=== PATIENT | male | born 1960 | race Caucasian/White ===

== ENCOUNTER 2020-12-08 08:28 | Day surgery (SDC) | payer BC ==
[2020-11-21 12:10] LABS: BASOPHILS # (AUTO) 0.1 X10'3 (0-0.2); BASOPHILS % (AUTO) 1.4 % (0-1); EOSINOPHILS # (AUTO) 0.1 X10'3 (0-0.9); EOSINOPHILS % (AUTO) 2.2 % (0-6); MEAN CORPUSCULAR HEMOGLOBIN 32.1 PG (27.0-31.0); MEAN CORPUSCULAR HGB CONC 33.7 g/dL (33.0-36.5); MEAN CORPUSCULAR VOLUME 95.4 FL (78-98); MEAN PLATELET VOLUME 9.1 FL (7.4-10.4); MONOCYTES # (AUTO) 0.5 X10'3 (0-0.9); MONOCYTES % (AUTO) 8.1 % (2-12); NEUTROPHILS # (AUTO) 3.4 X10'3 (1.8-7.7); NEUTROPHILS % (AUTO) 56.3 % (42-75); PRE OP HEMATOCRIT 43.8 % (42.0-52.0); PRE OP HEMOGLOBIN 14.8 g/dL (14.0-17.9); PRE OP PLATELET COUNT 195 X10'3 (140-440); RED BLOOD COUNT 4.59 X10'6 (4.70-6.10); RED CELL DISTRIBUTION WIDTH 13.6 % (11.5-14.5)
[2020-11-21 12:20] LABS: ALBUMIN 3.1 G/DL (3.4-5.0); ALBUMIN/GLOBULIN RATIO 0.9 (1.1-1.5); ALKALINE PHOSPHATASE 58 IU/L (46-116); BLOOD UREA NITROGEN 14 MG/DL (7-18); CALCIUM 8.1 MG/DL (8.5-10.1); CHLORIDE 108 MMOL/L (99-107); PRE OP ALT 41 U/L (30-65); PRE OP ANION GAP 8 (8-16); PRE OP AST 33 U/L (10-37); PRE OP BILIRUB, TOTAL 0.5 MG/DL (0.0-1.0); PRE OP GLUCOSE 84 MG/DL (70-104); PRE OP SODIUM 141 MMOL/L (135-145); TOTAL CARBON DIOXIDE 25.1 MMOL/L (24-32); TOTAL PROTEIN 6.7 G/DL (6.4-8.2); eGFR > 90 ML/MIN
[~2020-12-08] VITALS: Ht 177.8 cm; Wt 80.4 kg
[2020-12-08] VITALS (9 sets, daily range): BP systolic 116–125; BP diastolic 49–93
[~2020-12-08 08:28] MED LIST: BUPIVAcaine/PF 2.5mg/ml (0.25%) 10ml vial ONE; CLOB30CR12 TOP; KEP500T PO; MELO-100 PO; MOME45CR3 TOP; albuterol 2.5 MG/3 ML nebule NEB ONE; cefazolin/dext.iso 2gm/100ml IV ONE; famotidine 20mg tablet PO ONE; ringers solution, lacted 1,000 ML IV SCH
[2020-12-08] MEDS ORDERED: ringers solution, lacted 1,000 ML IV SCH (09:15)
[2020-12-08] MEDS ORDERED: meperidine/PF 25mg/ml syringe IV PRN ×3 (09:15)
[2020-12-08] MEDS ORDERED: morphine 2 MG/ML inj. syringe IV PRN (09:15)
[2020-12-08] MEDS ORDERED: ondansetron/PF 4mg/2ml inj IV PRN (09:15)
[2020-12-08] MEDS ORDERED: proCHLORperazine 10 MG/2 ml inj IV PRN (09:15)
[2020-12-08] MEDS ORDERED: morphine 4 MG/ML inj SYRINge IV PRN (09:15)
[2020-12-08] MEDS ORDERED: LIDOcaine 0.5% (5mg/ml) 50ml vial ONE (09:35)
[2020-12-08] MEDS ORDERED: fentaNYL/PF 50MCG/1 ML 2ML syringe ONE (11:08)
[2020-12-08] MEDS ORDERED: midazolam 1 mg/ML 2ml injection ONE (11:09)
--- NOTE | 2020-12-08 11:31 | NUR ---
Received from OR via , accompanied by Anesthesiologist dr [email or web address] and report given by Anesthesiolgist. PT PRESENTS WITH 20G LEFT HAND, DRESSING IN RIGHT HAND/WRIST DRY AND INTACT. VSS. Addendum: 12/08/20 at 1154 by Nayla Harmon RN, RN Amended: Links added.
--- NOTE | 2020-12-08 12:31 | NUR ---
PATIENT A&OX4, DENIES PAIN, V/S STABLE. I HAVE REVIEWED D/C ORDERS WITH PATIENT AND HIS AND THEY HAVE VERBALIZED UNDERSTANDING. PATIENT D/C HOME WITH ALL BELONGINGS AND GAVE TRANSPORT. Addendum: 12/08/20 at 1251 by Nayla Harmon RN, RN Amended: Links added.
== END 2020-12-08 12:31 | disposition home or self-care (01) ==
LOC: PAS 08:28
PROVIDERS: ATTEND Orthopaedic Surgery Hand Surgery
DX: G56.01 Carpal tunnel syndrome, right upper limb (principal); Z20.822 Contact with and (suspected) exposure to COVID-19; Z88.0 Allergy status to penicillin; Z79.899 Other long term (current) drug therapy; Z72.89 Other problems related to lifestyle; F17.290 Nicotine dependence, other tobacco product, uncomplicated
CPT/HCPCS: 29848; 36415; 80053; 82948; 85025; J2001; J2250; J3010; J3490; U0003; U0005; Z7506; Z7512; A4215; A7000; J7120